=== PATIENT | female | born 2000 | race Caucasian/White ===

== ENCOUNTER 2022-07-19 14:15 | Emergency (ER) | payer BC, OTHER ==
[~2022-07-19] VITALS: Ht 160 cm; Wt 83.5 kg
[2022-07-19 14:24] VITALS: BP_SYST 131
[2022-07-19] MEDS ORDERED: NAPR-1172 PO (14:44)
[2022-07-19] MEDS ORDERED: MED4 PO (14:44)
[2022-07-19 14:49] VITALS: BP_SYST 131
== END 2022-07-19 14:49 | disposition home or self-care (01) ==
LOC: SED 14:15
DX: J06.9 Acute upper respiratory infection, unspecified (principal)
CPT/HCPCS: 99283